=== PATIENT | female | born 2000 | race Caucasian/White ===

== ENCOUNTER 2021-06-26 04:22 | Emergency (ER) | payer BC ==
[~2021-06-26] VITALS: Ht 167.6 cm; Wt 64.2 kg
[2021-06-26] MEDS ORDERED: SODIUM CHLORIDE 0.9% 1,000ML IVBOLUS ONE (07:30)
[2021-06-26] MEDS ORDERED: DIPHENHYDRAMINE 50 MG/ML, 1ML IVPush ONE (07:30)
[2021-06-26] MEDS ORDERED: METOCLOPRAMIDE 5 MG/ML, 2ML IVPush ONE (07:30)
[2021-06-26 08:15] LABS: ALANINE AMINOTRANSFERASE 29 U/L (12-78); ALBUMIN 3.9 g/dL (3.4-5.0); ANION GAP 10 mmol/L (5-15); BASOPHILS % (AUTO) 0 % (0-1); CHLORIDE 110 mmol/L (98-107); CREATININE 0.68 mg/dL (0.55-1.02); EOSINOPHILS % (AUTO) 0 % (1-7); LYMPHOCYTES % (AUTO) 21 % (22-44); MEAN CORPUSCULAR HEMOGLOBIN 28.7 pg (27.0-34.8); MEAN CORPUSCULAR HGB CONC 33.7 g/dL (32.4-35.8); MEAN PLATELET VOLUME 9.5 fL (7.4-10.4); MONOCYTES % (AUTO) 4 % (2-9); NEUTROPHILS % (AUTO) 75 % (42-75); PLATELET COUNT 237 x10^3/uL (130-400); RED BLOOD COUNT 4.74 x10^6/uL (3.82-5.3); RED CELL DISTRIBUTION WIDTH 14.1 % (9.6-15.2)
[2021-06-26 08:20] LABS: ALKALINE PHOSPHATASE 49 U/L (45-117); BILIRUBIN,TOTAL 0.4 mg/dL (0.2-1.0); TOTAL PROTEIN 7.8 g/dL (6.4-8.2)
--- NOTE | 2021-06-26 09:56 | NUR ---
TO ROOM AT THIS TIME.
--- NOTE | 2021-06-26 10:10 | NUR ---
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 UA sample present and sent to lab.
--- NOTE | 2021-06-26 10:15 | NUR ---
at bedside for exam.
[2021-06-26] MEDS ORDERED: ONDANSETRON ODT 4 MG PO ONE (10:30)
[2021-06-26 10:36] LABS: MICROSCOPIC INDICATED
[2021-06-26] MEDS ORDERED: ONDANSETRON ODT 4 MG ONE (10:49)
--- NOTE | 2021-06-26 10:52 | NUR ---
Demetrio ODT given. Pt up to use the restroom again.
--- NOTE | 2021-06-26 10:53 | NUR ---
clarification on IV meds/IVF requested. Dr. Massey states to hold these and he is awaiting CT results and then likely sending pt home.
[2021-06-26 11:35] VITALS: BP 106/65
--- NOTE | 2021-06-26 11:35 | NUR ---
Pt reports some effect on nausea after Zofran admin.
== END 2021-06-26 11:37 | disposition home or self-care (01) ==
LOC: ED 09:27
DX: G43.009 Migraine without aura, not intractable, without status migrainosus (principal); R11.2 Nausea with vomiting, unspecified
CPT/HCPCS: 36415; 70450; 80053; 81001; 83690; 84703; 85025; 99284; Q0162